=== PATIENT | male | born 1965 | race Caucasian/White ===

== ENCOUNTER 2022-10-04 17:19 | Emergency (ER) | payer OTHER ==
[~2022-10-04] VITALS: Ht 177.8 cm; Wt 71.7 kg
--- NOTE | 2022-10-04 17:32 | NUR ---
[email or web address], medical screeening exam in progress
[2022-10-04] MEDS ORDERED: IV NORMAL SALINE 1000 ML BAG IV ONE (17:45)
[2022-10-04 18:11] LABS: HEMATOCRIT 41.6 % (36.7-47.1); MEAN CORPUSCULAR HEMOGLOBIN 30.6 uug (23.8-33.4); MEAN CORPUSCULAR VOLUME 93.6 fL (73.0-96.2); PLATELET COUNT (AUTO) 226 K/uL (152-348)
[2022-10-04 18:19] LABS: CREATININE 0.9 mg/dL (0.6-1.3); POTASSIUM 3.9 mmol/L (3.5-5.1)
[2022-10-04] MEDS ORDERED: IV NORMAL SALINE 250 ML IV ONE (18:21)
[2022-10-04] MEDS ORDERED: SWABABLE VALVE TRANSFER SET EA MC ONE (18:21)
[2022-10-04] MEDS ORDERED: IOHEXOL 350 100 ML INFUS..BTL ONE (18:21)
--- NOTE | 2022-10-04 18:59 | NUR ---
Received report from JULISSA Gee for continuity of care. Patient came for c/o CHOWDHURY since this AM, currently undergoing a stroke w/u to r/o stroke. NIHSS 0, no focal neurological deficits.
[2022-10-04] MEDS ORDERED: METOCLOPRAMIDE HCL 10 MG/2 ML VIAL ONE (19:57)
[2022-10-04] MEDS ORDERED: METOCLOPRAMIDE HCL 10 MG/2 ML VIAL IV ONE (20:00)
[2022-10-04] MEDS ORDERED: HYDROMORPHONE 1 MG/1 ML DISP.SYRIN IV ONE (21:15)
[2022-10-04] MEDS ORDERED: HYDROMORPHONE 1 MG/1 ML DISP.SYRIN ONE (21:19)
--- NOTE | 2022-10-04 21:33 | NUR ---
Patient has a possible spinal epidural hematoma vs meningioma. Dr. Feliciano consulted and accepts the patient at [facility] for inpatient admission. The patient will be going into . ETA for pickup is approximately 45 minutes.
--- NOTE | 2022-10-04 21:54 | NUR ---
Report given to JULISSA Vogt at [facility].
--- NOTE | 2022-10-04 22:12 | NUR ---
[facility] [address] CCT here for transport to [facility]. Patient in guarded condition, but hemodynamically stable.
== END 2022-10-04 22:15 | disposition short-term general hospital (02) ==
LOC: ER 17:28
DX: R51.9 Headache, unspecified (principal); J45.909 Unspecified asthma, uncomplicated; Z20.822 Contact with and (suspected) exposure to COVID-19
CPT/HCPCS: 99285; 70496; 96374; 96361; 96375; 87426; 80048; 85025; 85730; 36415; 70498; 70450; J2765; Q9967; J1170; J7040; A4663